=== PATIENT | male | born 1970 | race Caucasian/White ===

== ENCOUNTER 2016-11-13 13:28 | Observation (INO) | payer BC ==
[2016-11-13 14:07] LABS: Hematocrit 45 % (42-52); Hemoglobin 15.4 g/dl (14.0-18.0); Mean Corpuscular HGB Conc 34 g/dl (31-36); Mean Corpuscular Hemoglobin 36 pg (27-31); Mean Platelet Volume 7 um3 (7.4-10.4); Red Blood Count 4.27 10^6/ul (4.0-5.4); Red Cell Distribution Width 14 % (10.5-15); White Blood Count 5.3 10^3/ul (3.5-10.8)
[2016-11-13 14:08] LABS: Comments Flag Yes; Mean Corpuscular Volume 105 fL (80-94)
[2016-11-13] MEDS ORDERED: Magnesium Sulfate 2 GM IV* 2 GM/50 ML BAG IVPB ONE (14:21)
[2016-11-13] MEDS ORDERED: Thiamine IV* 100 MG, Folic Acid IV* 1 MG, Multiple Vitamin IV ADULT* 10 ML in NS 0.9% 1... IV ONE (14:22)
[2016-11-13 14:23] LABS: ALT 42 U/L (7-52); AST 85 U/L (13-39); Alkaline Phosphatase 67 U/L (34-104); Anion Gap 14 mmol/L (2-11); BUN/Creatinine Ratio 7.4 (8-20); Blood Urea Nitrogen 5 mg/dL (6-24); CO2 Carbon Dioxide 27 mmol/L (22-32); Calcium 8.4 mg/dL (8.6-10.3); Chloride 99 mmol/L (101-111); Creatine Kinase 147 U/L (10-223); EGFR African American 162.9 (>60); EGFR Non-African American 126.7 (>60); Globulin 2.8 g/dL (2-4); Glucose 110 mg/dL (70-100); Potassium 3.7 mmol/L (3.5-5.0); Sodium 140 mmol/L (133-145); Total Protein 6.8 g/dL (6.4-8.9)
[2016-11-13] MEDS ORDERED: LORazepam INJ* 2 MG/ML 1 ML VIAL IV PUSH ONE (14:23)
[2016-11-13] MEDS: NS 0.9% 1000 ML* 2,000 ML IV ONE ×2 (14:35→16:05)
[2016-11-13 14:49] LABS: Magnesium 1.3 mg/dL (1.9-2.7)
[2016-11-13 15:07] LABS: Acetaminophen < 15 mcg/mL; Alcohol 206 mg/dL (<10); Salicylate < 2.50 mg/dL (<30)
--- NOTE | 2016-11-13 16:19 | ED ---
I, Arron,An, scribed for Jorge Garcia MD on 11/13/16 at 1428 . Substance Abuse/Use - HPI Summary HPI Summary: This 46 y/o male presents to ED as 2208 for EtOH abuse. Pt reports having been drinking a couple days in a row, with last drink of beer at [id number] PM last night. Pt states that he has hx of EtOH abuse counseling 3 years ago. Pt reports constant, waxing and waning tremors that are noted since this morning. He denies any auditory/visual hallucination during his usual withdrawal. He is noted with blood pressure of 151/102 and pulse rate of 105 were noted at time of triage. PMHx includes HTN and chronic left knee pain. 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 Pt chews tobacco, but denies any use of recreational drug. FHx is positive for DM and EtOH abuse. Pt denies any depression but reports sleep disturbance and appetite loss while he drinks. - History Of Current Complaint Chief Complaint: EDSubstanceAbuse Stated Complaint: 2208 Time Seen by Provider: 11/13/16 13:49 Hx Obtained From: Patient Overdose Characteristics: Oral Timing Of Abuse: Binge Use Severity Initially: Moderate Severity Currently: Moderate Character: Depressed, Other - agitated Aggravating Factor(s): Nothing Alleviating Factor(s): Nothing Associated Signs And Symptoms: Tremulous, Agitated, Intentional Ingestion - Allergies/Home Medications Allergies/Adverse Reactions: Allergies Allergy/AdvReac Type Severity Reaction Status Date / Time No Known Allergies Allergy Verified 04/11/16 15:38 PMH/Surg Hx/FS Hx/Imm Hx Endocrine/Hematology History: Denies: Hx Anticoagulant Therapy, Hx Diabetes, Hx Thyroid Disease Cardiovascular History: Reports: Hx Angina, Hx Hypercholesterolemia, Hx Hypertension Denies: Hx Coronary Artery Disease, Hx Myocardial Infarction, Hx Pacemaker/ ICD, Hx Valvular Heart Disease Respiratory History: Denies: Hx Asthma, Hx Chronic Obstructive Pulmonary Disease (COPD) GI History: Denies: Hx Ulcer History: Denies: Hx Renal Disease Musculoskeletal History: Reports: Hx Arthritis - in bilateral knees Denies: Hx Rheumatoid Arthritis, Hx Osteoporosis, Other Musculoskeletal History Sensory History: Reports: Hx Contacts or Glasses Denies: Hx Hearing Aid Opthamlomology History: Reports: Hx Contacts or Glasses Neurological History: Denies: Hx Seizures Psychiatric History: Reports: Hx Anxiety, Hx Substance Abuse Denies: Hx Eating Disorder, Hx Panic Disorder, Hx of Violent Episodes Against Others - Surgical History Surgery Procedure, Year, and Place: 1987 Lt Knee surgery - LATERAL MENISCUS SURGERY - TORE DURING WRESTLING. Infectious Disease History: No Infectious Disease History: Denies: Hx Clostridium Difficile, Hx Hepatitis, Hx Human Immunodeficiency Virus (HIV), Hx of Known/Suspected MRSA, Hx Shingles, Hx Tuberculosis, Hx Known/ Suspected VRE, Hx Known/Suspected VRSA, History Other Infectious Disease, Traveled Outside the [place] in Last 30 Days - Family History Known Family History: Positive: Hypertension, Diabetes, Other - EtOH abuse - Social History Occupation: Employed Full-time - financial administration officer at [employer] Alcohol Use: Daily Alcohol Amount: 1LITER DALIY Hx Substance Use: No Substance Use Type: Reports: None Hx Tobacco Use: Yes - Chewing tobacco Smoking Status (MU): Former Smoker Type: Smokeless Tobacco Amount Used/How Often: QUIT 25 YEARS AGO Have You Smoked in the Last Year: No Review of Systems Negative: Fever Positive: Nausea Neurological: Other - tremor Positive: Anxious All Other Systems Reviewed And Are Negative: Yes Physical Exam - Summary Physical Exam Summary: The patient is well-nourished in no acute distress and in no acute pain. The skin is warm and dry and skin color reflects adequate perfusion. Good turgor. HEENT: The head is normocephalic and atraumatic. The pupils are equal and reactive. Bilat conjuctiva injected. The conjunctivae are clear and without drainage. Nares are patent and without drainage. Mouth reveals DRY mucous membranes and the throat is without erythema and exudate. The external ears are intact. The ear canals are patent and without drainage. The tympanic membranes are intact. Neck is supple with full range of motion and non-tender. There are no carotid bruits. There is no neck vein distension. Respiratory: Chest is non-tender. Lungs are clear to auscultation and breath sounds are symmetrical and equal. Cardiovascular: Hear is regular rate and rhythm. There is no murmur or rub auscultated. There is no peripheral edema and pulses are symmetrical and equal. Abdomen: The abdomen is obese, soft, and non-tender. Musculoskeletal: There is no back pain noted. Extremities are non-tender with full range of motion. There is good capillary refill. There is no peripheral edema or calf tenderness elicited. Neurological: Patient is alert and oriented to person, place and time. The patient has symmetrical motor strength in all four extremities. Cranial nerves are grossly intact. Deep tendon reflexes are symmetrical and equal in all four extremities .Pt appears tremulous. Psychiatric: The patient appears to be agitated and depressed. Triage Information Reviewed: Yes Vital Signs On Initial Exam: Initial Vitals Temp Pulse Resp BP Pulse Ox 97.6 F 105 16 151/102 100 11/13/16 13:31 11/13/16 13:31 11/13/16 13:31 11/13/16 13:31 11/13/16 13:31 Vital Signs Reviewed: Yes Diagnostics - Vital Signs Vital Signs Temp Pulse Resp BP Pulse Ox 11/13/16 13:51 94 97 11/13/16 13:49 144/101 11/13/16 13:31 97.6 F 105 16 151/102 100 - Laboratory Lab Results: Lab Results 11/13/16 Range/Units 13:50 WBC 5.3 (3.5-10.8) 10^3/ul RBC 4.27 (4.0-5.4) 10^6/ul Hgb 15.4 (14.0-18.0) g/dl Hct 45 (42-52) % MCV 105 H (80-94) fL MCH 36 H (27-31) pg MCHC 34 (31-36) g/dl RDW 14 (10.5-15) % Plt Count 156 (150-450) 10^3/ul MPV 7 L (7.4-10.4) um3 Neut % (Auto) 72.8 (38-83) % Lymph % (Auto) 18.4 L (25-47) % [place] % (Auto) 7.8 (1-9) % Eos % (Auto) 0.1 (0-6) % Baso % (Auto) 0.9 (0-2) % Absolute Neuts (auto) 3.9 (1.5-7.7) 10^3/ul Absolute Lymphs (auto) 1.0 (1.0-4.8) 10^3/ul Absolute Monos (auto) 0.4 (0-0.8) 10^3/ul Absolute Eos (auto) 0 (0-0.6) 10^3/ul Absolute Basos (auto) 0 (0-0.2) 10^3/ul Absolute Nucleated RBC 0 10^3/ul Nucleated RBC % 0.1 Result Diagrams: 11/13/16 13:50 11/13/16 13:50 Lab Statement: Any lab studies that have been ordered have been reviewed, and results considered in the medical decision making process. Course/Dx - Course Assessment/Plan: This 46 y/o male presents to ED as 2208 after pt is noted with tremor. Pt reports drinking "a couple of days straight" with the last drink reported last night around 2230 PM. Pt is noted with tachycardia, hypertension at the time of triage, and tremor at the time of initial evaluation. Blood work shows lactic acid of 4.2 and serum EtOH level of 206. Physical findings were discussed with Dr. Sandoval (hospitalist) and [employer] social worker. Dr. Sandoval accepts the admission of the pt. - Diagnoses Differential Diagnosis/HQI/PQRI: Positive: Alcohol Abuse, Alcohol Withdrawal, Depression Provider Diagnoses: Acute alcohol intoxication, Alcohol withdrawal - Physician Notifications Discussed Care Of Patient With: Dr. Sandoval (Hospitalist) at 1541 PM. Valencia ( Technical Writer And Editor) at 1555 PM Time Discussed With Above Provider: 15:41 Instructed by Provider To: Admit As Inpatient Discharge - Discharge Plan Condition: Stable Disposition: ADMITTED TO DEPORT MEDICAL Referrals: Harish Longo MD [Primary Care Provider] - The documentation as recorded by the Arron [email or web address] Soohyun accurately reflects the service I personally performed and the decisions made by me, Jorge Garcia MD.
[2016-11-13] MEDS ORDERED: Acetaminophen TAB* 325 MG PO PRN (16:28)
[2016-11-13] MEDS ORDERED: Temazepam CAP* 15 MG PO PRN (16:28)
[2016-11-13] MEDS ORDERED: Ondansetron INJ* 2 MG/ML VIAL IV PRN ×2 (16:28→16:41)
[2016-11-13] MEDS ORDERED: Ibuprofen TAB* 600 MG PO PRN (16:29)
[2016-11-13] MEDS ORDERED: Magnesium Sulf 4 GM/100 ML IV* 4,000 MG/100 ML BAG IVPB ONE ×2 (16:41→20:00)
[2016-11-13] MEDS ORDERED: LORazepam TAB(*) 1 MG PO SCH (17:00)
[2016-11-13] MEDS: LORazepam TAB(*) 1 MG PO SCH (18:20)
[2016-11-13] MEDS: Magnesium Oxide TAB* 400 MG PO SCH (18:20)
[2016-11-13] MEDS: busPIRone TAB* 10 MG PO SCH (21:52)
[2016-11-13] MEDS: Gabapentin CAP(*) 300 MG PO SCH (21:52)
[2016-11-13] MEDS: NS 0.9% 1000 ML* 1,000 ML IV SCH (21:57)
--- NOTE | 2016-11-13 22:12 | HP ---
HISTORY AND PHYSICAL: DATE OF ADMISSION: 11/13/16 PRIMARY CARE PROVIDER: Dr. Longo. CHIEF COMPLAINT: Alcohol withdrawal. HISTORY OF PRESENT ILLNESS: Ryley Mejia is a 46-year-old male with a history of alcoholism as well as alcohol withdrawal seizures, who was stopped by a police today while driving under the influence of alcohol. He was brought to the ED for evaluation while intoxicated due to starting to withdrawal. The patient himself stated that 2 days ago, he fell because "the wall moved up on him." Today, he denies any hallucinations. He complains of nausea, diarrhea , and tremors. He is going to be admitted with a diagnosis of alcohol withdrawal. PAST MEDICAL HISTORY: 1. Alcohol withdrawal seizure. 2. Hypertension. 3. Bilateral knee osteoarthritis. 4. Alcoholism. 5. History of left lateral meniscus repair in 1997. MEDICATIONS: The patient has not taken any medications for the past several weeks, but he usually takes: 1. Atenolol 25 mg daily. 2. Ibuprofen 600 mg on a p.r.n. basis. 3. Zoloft 75 mg daily. 4. Thiamine 100 mg daily. 5. BuSpar 10 mg b.i.d. 6. Amlodipine 5 mg daily. 7. Folic acid 1 mg daily. 8. Gabapentin 300 mg 3 times a day. ALLERGIES: No known drug allergies. FAMILY HISTORY: Reviewed and noncontributory. SOCIAL HISTORY: The patient stated that he quit smoking approximately 13 years ago. He chews tobacco daily. He drinks 2 small bottles of hot liquor a day. He lives by himself. He is currently employed and used to be a correctional counselor/case manager over 6 months ago. For 6 months, he was on sick leave due to knee osteoarthritis. His healthcare proxy is his brother, Gilbert Mejia. His phone number is [phone]. REVIEW OF SYSTEMS: Please see history of present illness. All the remaining systems were reviewed with the patient and were otherwise negative. PHYSICAL EXAMINATION GENERAL: The patient is a very pleasant 46-year-old male who is in no acute distress. The patient is alert and oriented x3. VITAL SIGNS: Blood pressure of 132/81, heart rate of 99 and regular, respiratory rate 22, oxygen saturation 98% on 2 L of oxygen nasal cannula. The patient was placed on oxygen since he was saturating below 90% when asleep. Temperature 97.6. HEENT: Head atraumatic, normocephalic. Eyes: Pupils equal, reactive to light and accommodation. Oropharynx clear. Mucosa moist. NECK: Supple. No JVD. No bruit bilaterally. RESPIRATORY: Clear to auscultation bilaterally. CARDIOVASCULAR: Regular rate and rhythm. No murmur. ABDOMEN: Soft, protuberant, nontender. Bowel sounds present in all 4 quadrants. EXTREMITIES: There is no edema. Pulses 2+ bilaterally. There is no clubbing or cyanosis. NEURO: The patient is rather tremulous. Oriented x3. Speech fluent and clear. Cranial nerves II through XII grossly intact. Motor strength is 5/5 bilaterally. SKIN: On evaluation of the skin, the patient has ecchymotic area on the right shoulder. No other lesions identified. PSYCHIATRIC: Oriented x3 with no evidence of anxiety or depression. Positive for withdrawal. DIAGNOSTIC STUDIES/LAB DATA: Show white blood cell count of 5.3, hemoglobin of 15.4, hematocrit of 45, and platelets of 156. MCV of 105. Sodium was 140, potassium 3.7, chloride of 99, carbon dioxide 27, BUN 5, creatinine 0.68. Liver function test showed AST of 85; otherwise, ALT and alkaline phosphatase unremarkable. Bilirubin of 1. Magnesium was low at 1.3. Lactic acid was elevated at 4.2. ASSESSMENT AND PLAN: A 46-year-old male, alcoholic, with history of hallucinations couple of days ago as well as history of alcohol withdrawal seizures in the past, who presents with withdrawal. Currently, his mentation is intact. He experiences tremors, nausea, and diarrhea. He is going to be placed on inpatient status. In regards to his alcohol withdrawal, he is going to be placed on Ativan withdrawal protocol as well as Ativan standing order for seizure prophylaxis. In regards to his hypomagnesemia, the patient is going to be placed on p.o. magnesium as well as IV magnesium. We will monitor magnesium levels in the morning. In regards to mild elevation of AST most likely due to alcoholism and very mild alcoholic hepatitis. I do not believe any followup at this point is needed. Please note that the patient's serum alcohol level at presentation was 206. Although he stated that the last time he drank was the night prior to today's presentation. Thiamine and folate supplements are also going to be ordered on a daily basis. In regards to the patient's history of hypertension, atenolol and Norvasc is going to be reinstituted. For his chronic pain and osteoarthritis, gabapentin is going to be continued as previously ordered. For his depression, he does not have suicide ideation. Buspirone and Zoloft is going to be restarted. For DVT prophylaxis, the patient is at low risk and ambulation is going to be encouraged. TIME SPENT: Approximately 62 minutes were spent on admission of this patient, more than half that time was spent [id number] with the patient during the interview and physical exam. CC: Dr. Longo* [id number]/[facility] #: [id number] JOSUE
[2016-11-14] MEDS: LORazepam TAB(*) 1 MG PO SCH ×2 (01:09→11:24)
[2016-11-14 01:51] LABS: Urine Bilirubin Negative (Negative); Urine Glucose Negative (Negative); Urine Nitrite Negative (Negative)
[2016-11-14 02:02] LABS: Benzodiazepine Urine Screen None Detected (None Detect)
[2016-11-14] MEDS: NS 0.9% 1000 ML* 1,000 ML IV SCH (05:59)
[2016-11-14] MEDS ORDERED: Thiamine TAB* 100 MG TAB PO SCH (09:00)
[2016-11-14] MEDS ORDERED: amLODIPine TAB* 5 MG PO SCH (09:00)
[2016-11-14] MEDS ORDERED: Sertraline* 50 MG TAB PO SCH (09:00)
[2016-11-14] MEDS ORDERED: Folic Acid TAB* 1 MG PO SCH (09:00)
[2016-11-14] MEDS ORDERED: Multivitamins/Minerals TAB PO SCH (09:00)
[2016-11-14] MEDS ORDERED: Atenolol TAB* 25 MG PO SCH (09:00)
[2016-11-14] MEDS ORDERED: Pneumococcal *Vac Polyvalent 0.5 ML VIAL IM ONE (09:00)
[2016-11-14] MEDS ORDERED: Influenza VAC *QUAD* 2016-17* 0.5 ML SYRINGE IM ONE (09:00)
[2016-11-14] MEDS: Magnesium Oxide TAB* 400 MG PO SCH (09:30)
[2016-11-14] MEDS ORDERED: chlordiazePOXIDE CAP* 25 MG PO PRN (09:30)
[2016-11-14] MEDS: busPIRone TAB* 10 MG PO SCH (09:31)
[2016-11-14] MEDS: Gabapentin CAP(*) 300 MG PO SCH ×2 (09:31→15:01)
--- NOTE | 2016-11-14 09:59 | PN ---
Subjective Date of Service: 11/14/16 Interval History: No new c/o. Slept fair. Appetite good. Pt states he is in process of going to inpt rehab. Objective Active Medications: Acetaminophen (Tylenol Tab*) 650 mg PO Q4H PRN PRN Reason: FEVER/PAIN Amlodipine Besylate (Norvasc Tab*) 5 mg PO DAILY [facility] Last Admin: 11/14/16 09:31 Dose: 5 mg Atenolol (Tenormin Tab*) 25 mg PO DAILY [facility] Last Admin: 11/14/16 09:31 Dose: 25 mg Buspirone HCl (Buspar Tab*) 10 mg PO BID [facility] Last Admin: 11/14/16 09:31 Dose: 10 mg Chlordiazepoxide (Librium Cap*) 25 mg PO TID [facility] Chlordiazepoxide (Librium Cap*) 25 mg PO Q3H PRN PRN Reason: AGITATION/ANXIETY Folic Acid (Folvite Tab*) 1 mg PO DAILY [facility] Last Admin: 11/14/16 09:31 Dose: 1 mg Gabapentin (Neurontin Cap(*)) 300 mg PO TID [facility] Last Admin: 11/14/16 09:31 Dose: 300 mg Ibuprofen (Motrin Tab*) 600 mg PO Q6H PRN PRN Reason: PAIN - MODERATE Magnesium Oxide (Magox 400 Tab*) 800 mg PO DAILY [facility] Last Admin: 11/14/16 09:30 Dose: 800 mg Multivitamins/Minerals (Theragran/Minerals Tab*) 1 tab PO DAILY [facility] Last Admin: 11/14/16 09:30 Dose: 1 tab Ondansetron HCl (Zofran Inj*) 4 mg IV Q6H PRN PRN Reason: NAUSEA/VOMITING Last Admin: 11/13/16 17:28 Dose: 4 mg Sertraline HCl (Zoloft*) 75 mg PO DAILY [facility] Last Admin: 11/14/16 09:30 Dose: 75 mg Temazepam (Restoril Cap*) 15 mg PO BEDTIME PRN PRN Reason: INSOMNIA Thiamine HCl (Vitamin B-1 Tab*) 100 mg PO DAILY [facility] Last Admin: 11/14/16 09:31 Dose: 100 mg Vital Signs 11/13/16 11/13/16 11/13/16 17:15 17:35 18:20 Temperature 98.3 F 98.3 F Pulse Rate 100 97 Respiratory 18 18 18 Rate Blood Pressure 146/78 146/78 (mmHg) O2 Sat by Pulse 100 100 Oximetry 11/13/16 11/13/16 11/13/16 19:31 20:00 20:16 Temperature 98.5 F Pulse Rate 83 Respiratory 18 16 16 Rate Blood Pressure 152/78 (mmHg) O2 Sat by Pulse 100 Oximetry 11/13/16 11/13/16 11/13/16 20:20 21:52 23:52 Temperature Pulse Rate Respiratory 16 16 16 Rate Blood Pressure (mmHg) O2 Sat by Pulse Oximetry 11/14/16 11/14/16 11/14/16 00:11 01:09 03:09 Temperature 98.3 F Pulse Rate 87 Respiratory 16 16 16 Rate Blood Pressure 144/74 (mmHg) O2 Sat by Pulse 97 Oximetry 11/14/16 11/14/16 11/14/16 05:15 08:17 09:31 Temperature 98.3 F 97.9 F Pulse Rate 73 85 Respiratory 16 16 18 Rate Blood Pressure 140/85 146/110 (mmHg) O2 Sat by Pulse 100 98 Oximetry Oxygen Devices in Use Now: None Appearance: Alert, partly up in bed. In good spirits. Looks comfortable. Eyes: No Scleral Icterus Ears/Nose/Mouth/Throat: Clear Oropharnyx, Mucous Membranes Moist Neck: NL Appearance and Movements; NL JVP, No Thyroid Enlargement, Masses Respiratory: Symmetrical Chest Expansion and Respiratory Effort, Clear to Auscultation, Clear to Percussion Cardiovascular: NL Sounds; No Murmurs; No JVD, RRR, No Edema, - Extremities: No Edema, No Clubbing, Cyanosis, - Skin: No Rash or Ulcers, No Nodules or Sclerosis, - Neurological: Alert and Oriented x 3, NL Sensation, - - mild sustention tremor. Result Diagrams: 11/13/16 13:50 11/13/16 13:50 Additional Lab and Data: Lab Results 11/13/16 Range/Units 13:50 WBC 5.3 (3.5-10.8) 10^3/ul RBC 4.27 (4.0-5.4) 10^6/ul Hgb 15.4 (14.0-18.0) g/dl Hct 45 (42-52) % MCV 105 H (80-94) fL MCH 36 H (27-31) pg MCHC 34 (31-36) g/dl RDW 14 (10.5-15) % Plt Count 156 (150-450) 10^3/ul MPV 7 L (7.4-10.4) um3 Neut % (Auto) 72.8 (38-83) % Lymph % (Auto) 18.4 L (25-47) % [place] % (Auto) 7.8 (1-9) % Eos % (Auto) 0.1 (0-6) % Baso % (Auto) 0.9 (0-2) % Absolute Neuts (auto) 3.9 (1.5-7.7) 10^3/ul Absolute Lymphs (auto) 1.0 (1.0-4.8) 10^3/ul Absolute Monos (auto) 0.4 (0-0.8) 10^3/ul Absolute Eos (auto) 0 (0-0.6) 10^3/ul Absolute Basos (auto) 0 (0-0.2) 10^3/ul Absolute Nucleated RBC 0 10^3/ul Nucleated RBC % 0.1 Assess/Plan/Problems-Billing Assessment: - Patient Problems (1) Alcohol withdrawal Current Visit: No Status: Acute Priority: High Code(s): F10.239 - ALCOHOL DEPENDENCE WITH WITHDRAWAL, UNSPECIFIED SNOMED Code(s): 113130183 Comment: Change to schedule and PRN chlordiazepoxide. I will coordinate with the . (2) Hypertension Current Visit: No Status: Chronic Priority: Medium Onset Date: 03/24/16 Code(s): I10 - ESSENTIAL (PRIMARY) HYPERTENSION SNOMED Code(s): 46275122 Comment: BP is well controlled. Continue atenolol and amlodipine.
[2016-11-14] MEDS: chlordiazePOXIDE CAP* 25 MG PO SCH ×2 (11:08→15:01)
[2016-11-14 12:32] VITALS: BP 132/88
--- NOTE | 2016-11-15 02:20 | DS ---
DISCHARGE SUMMARY: DATE OF ADMISSION: 11/13/16 DATE OF DISCHARGE: 11/14/16 HISTORY OF PRESENT ILLNESS: This 46-year-old man who was brought in by the police while he was driving under the influence of alcohol. The patient has a history of having alcohol withdrawal seizures in the past. He was in alcohol rehab once about 3 years ago. I note that his alcohol level in the emergency room was 206. The patient was given lorazepam the first hospital day. He was switched over to chlordiazepoxide the second hospital day. He did quite well. He had a mild sustention tremor at the time of discharge, but looked otherwise quite fit. His appetite is good. He was eating well and ambulating and in good spirit. He was seen by the social group worker and it was arranged that he would be admitted to a rehab facility on November 15. He was discharged with a prescription for chlordiazepoxide 25 mg 4 capsules to take one in the evening of November 14, , and and one in the morning of November 15. FINAL DIAGNOSES: 1. Alcohol withdrawal with history of alcohol seizures in the past. 2. Hypertension. DISCHARGE MEDICATIONS: 1. Chlordiazepoxide as above. 2. Buspirone 10 mg b.i.d. 3. Amlodipine 5 mg daily. 4. Atenolol 25 mg daily. 5. Ibuprofen 600 mg every 6 hours p.r.n. 6. Thiamine 100 mg daily. 7. Folic acid 1 mg daily. 8. Gabapentin 300 mg t.i.d. 9. Sertraline 75 mg daily. CC: Dr. Longo* [id number]/[facility] #: [id number] JOSUE
== END 2016-11-14 15:50 | disposition home or self-care (01) ==
LOC: ED 13:28 → OBSVTOIN 15:42 → MED 15:42 → INTOOBSV 15:42 → OBSVTOIN 16:00 → INTOOBSV 16:00 → MED 22:25
PROVIDERS: ADMIT Internal Medicine; ATTEND Internal Medicine
DX: F10.239 Alcohol dependence with withdrawal, unspecified (principal); I10 Essential (primary) hypertension; M17.0 Bilateral primary osteoarthritis of knee; Z87.891 Personal history of nicotine dependence; Z79.899 Other long term (current) drug therapy; Z23 Encounter for immunization
CPT/HCPCS: 36415; 80053; 80307; 80320; 80329; 81003; 82550; 83605; 83735; 85025; 90471; 90472; 90686; 90732; 96361; 96365; 96366; 96367; 96375; 96376; 99284; A9270-GY; G0008; G0009; G0378; G0480; G8978-GP-CI; G8979-GP-CI; G8980-GP-CI; J2060; J2405; J3411; J3475

== ENCOUNTER 2019-09-02 07:03 | Emergency (ER) | payer OTHER ==
--- NOTE | 2019-09-02 07:12 | UC ---
Lower Extremity/Ankle HPI - HPI Summary HPI Summary: 49 yo gentleman with L foot pain since Sunday (today is Sunday). Unk injury. Stands on feet all day. Hx gout. High arches. No other pain c/o reported. No fever / chills. No rash. No p/d/fw - History of Current Complaint Stated Complaint: FOOT INJURY Time Seen by Provider: 09/02/19 07:12 Hx Obtained From: Patient - Allergies/Home Medications Allergies/Adverse Reactions: Allergies Allergy/AdvReac Type Severity Reaction Status Date / Time No Known Allergies Allergy Verified 09/02/19 07:17 Home Medications: Home Medications Gabapentin CAP(*) [Neurontin 300 CAP(*)] 200 mg PO TID 09/02/19 [History] Ibuprofen TAB* [Motrin TAB* 600 MG] 800 mg PO Q6H PRN 09/02/19 [History Confirmed 09/02/19] PMH/Surg Hx/FS Hx/Imm Hx Previously Healthy: Yes - see hpi Other History Of: Negative For: Anticoagulant Therapy - Surgical History Surgical History: Yes Surgery Procedure, Year, and Place: 1987 Lt Knee surgery - LATERAL MENISCUS SURGERY - TORE DURING WRESTLING. - Family History Known Family History: Positive: Hypertension, Diabetes, Other - EtOH abuse Family History: R & n/C - Social History Alcohol Use: Daily Alcohol Amount: 1LITER DALIY Substance Use Type: None Substance Use Comment - Amount & Last Used: Last drank 11/12/16 Smoking Status (MU): Former Smoker Type: Smokeless Tobacco Amount Used/How Often: QUIT 25 YEARS AGO Have You Smoked in the Last Year: No - Immunization History Most Recent Influenza Vaccination: September, Most Recent Tetanus Shot: Remote Most Recent Pneumonia Vaccination: has not received Review of Systems All Other Systems Reviewed And Are Negative: Yes Constitutional: Positive: Negative Skin: Positive: Negative Eyes: Positive: Negative ENT: Positive: Negative Respiratory: Positive: Negative Cardiovascular: Positive: Negative Gastrointestinal: Positive: Negative Genitourinary: Positive: Negative Motor: Positive: Other - see hpi Neurovascular: Positive: Negative Musculoskeletal: Positive: Other: - see hpi Neurological: Positive: Negative Psychological: Positive: Negative Is Patient Immunocompromised?: No Physical Exam Triage Information Reviewed: Yes Appearance: Well-Appearing, Well-Nourished Vital Signs Reviewed: Yes Eye Exam: Normal - grossly nad ENT Exam: Normal - grossly nad Neck exam: Normal - no c/o reported Respiratory Exam: Normal Cardiovascular Exam: Normal - hr normal nondiaphoretic Abdominal Exam: Normal - nt Musculoskeletal Exam: Other - Tender medial arch. Also tender 1st MT and 2nd MTP. Some swelling. CR good. Wiggles toes but painful. Dp/Pt palpable. Neurological Exam: Normal - grossly nonfocal Psychological Exam: Normal - conversing easily and appropriately Skin Exam: Normal - no visible or reported rash Lower Extremity Course/Dx - Course Course Of Treatment: Consider gout vs other inflam condition. Reviewed xray report with pt. CAM boot for comfort. F/u PCP encouraged. Suspicious gout. Labs drawn. F/u PCP. Work note. - Differential Dx/Diagnosis Provider Diagnosis: Osteoarthritis, Gout Discharge ED - Sign-Out/Discharge Documenting (check all that apply): Patient Departure All imaging exams completed and their final reports reviewed: Yes - Discharge Plan Condition: Stable Disposition: HOME Prescriptions: Colchicine [Mitigare] 0.6 mg PO DAILY #6 capsule Indomethacin CAP* [Indocin CAP*] 50 mg PO TID PRN #30 cap PRN Reason: Pain - Moderate Patient Education Materials: Low Purine Diet (ED), Osteoarthritis (ED), Gout ( ED) Forms: *Work Release Referrals: Mateo Crenshaw MD [Primary Care Provider] - Additional Instructions: Follow up with your primary care physician, this week if possible for recheck. Frequent elevation. Please seek medical attention for worse or new problems. CAM boot for comfort during the day. - Billing Disposition and Condition Condition: STABLE Disposition: Home
[2019-09-02 07:17] VITALS: BP 156/89
[2019-09-02 15:04] LABS: C Reactive Protein 1.21 mg/L (<8.01); EGFR African American 123.6 (>60); EGFR Non-African American 102.1 (>60)
--- NOTE | 2019-09-03 11:27 | UC ---
- Progress Note Progress Note: PLEASE CALL PATIENT. LABS ALL NORMAL. SX MAY NOT BE DUE TO GOUT. FOLLOW-UP PCP ADVISED IF HIS SYMPTOMS ARE NOT IMPROVING WITH TREATMENT. Course/Dx - Diagnoses Provider Diagnoses: Osteoarthritis, Gout Discharge ED - Sign-Out/Discharge Documenting (check all that apply): Post-Discharge Follow Up All imaging exams completed and their final reports reviewed: Yes - Discharge Plan Condition: Stable Disposition: HOME Prescriptions: Colchicine [Mitigare] 0.6 mg PO DAILY #6 capsule Indomethacin CAP* [Indocin CAP*] 50 mg PO TID PRN #30 cap PRN Reason: Pain - Moderate Patient Education Materials: Low Purine Diet (ED), Osteoarthritis (ED), Gout ( ED) Forms: *Work Release Referrals: Mateo Crenshaw MD [Primary Care Provider] - Additional Instructions: Follow up with your primary care physician, this week if possible for recheck. Frequent elevation. Please seek medical attention for worse or new problems. CAM boot for comfort during the day. - Billing Disposition and Condition Condition: STABLE Disposition: Home
== END 2019-09-02 08:14 | disposition home or self-care (01) ==
LOC: UCEAST 07:03
DX: M19.072 Primary osteoarthritis, left ankle and foot (principal); M10.9 Gout, unspecified; Z87.891 Personal history of nicotine dependence
CPT/HCPCS: 36415; 82565; 84520; 84550; 85652; 86140; 99213; G0463

== ENCOUNTER 2022-01-02 07:56 | Inpatient (IN) ==
[2022-01-02] MEDS ORDERED: Lorazepam PYXIS KEY PRN ×5 (08:05→13:18)
[2022-01-02] MEDS ORDERED: LORazepam 2 mg VIAL 1 ml ONE (08:06)
[2022-01-02] MEDS ORDERED: Thiamine 100 MG/ML 2 ml VIAL (200 mg) IM ONE (08:07)
[2022-01-02] MEDS ORDERED: Lactated Ringers 1000 ml BAG 1,000 ML IV ONE ×3 (08:07→10:23)
[2022-01-02] MEDS ORDERED: Thiamine 100 MG/ML 2 ml VIAL 100 MG, Folic Acid IV 1 MG, Multiple Vitamin IV ADULT 10 M... IV ONE ×2 (08:08→13:13)
[2022-01-02] MEDS: LORazepam 2 mg VIAL 1 ml IV PUSH ONE ×2 (08:11→10:57)
[2022-01-02 09:15] LABS: ABS Lymphocytes 0.3 10^3/ul (1.0-4.8); ABS Monocytes 0.3 10^3/ul (0-0.8); ABS Neutrophils 6.6 10^3/ul (1.5-7.7); Hematocrit 38 % (42-52); Hemoglobin 13.2 g/dL (14.0-18.0); Lymphocyte % 4.8 %; Mean Corpuscular HGB Conc 35 g/dL (31-36); Mean Corpuscular Hemoglobin 36 pg (27-31); Mean Corpuscular Volume 104 fL (80-94); Mean Platelet Volume 8.1 fL (7.4-10.4); Platelet Count 113 10^3/uL (150-450); Red Blood Count 3.67 10^6 /uL (4.18-5.48); Red Cell Distribution Width 14 % (10-15); White Blood Count 7.3 10^3/uL (3.5-10.8)
[2022-01-02 09:19] LABS: INR 1.14 (0.86-1.15)
[2022-01-02] MEDS ORDERED: LORazepam 2 mg VIAL 1 ml IV PUSH ONE ×3 (09:21→12:24)
[2022-01-02 09:32] LABS: ALT 18 U/L (7-52); AST 21 U/L (13-39); Albumin/Globulin Ratio 1.9 (1-3); Alkaline Phosphatase 49 U/L (35-149); Anion Gap 13 mmol/L (2-11); Blood Urea Nitrogen 23 mg/dL (6-24); CO2 Carbon Dioxide 23 mmol/L (22-32); Calcium 9.1 mg/dL (8.6-10.3); Chloride 100 mmol/L (101-111); Globulin 2.1 g/dL (2-4); Glucose 70 mg/dL (70-100); Magnesium 1.9 mg/dL (1.9-2.7); Potassium 3.7 mmol/L (3.5-5.0); Sodium 136 mmol/L (135-145); Total Protein 6.1 g/dL (6.4-8.9); eGFR CKD-EPI 35.6 (>60)
[2022-01-02 09:34] LABS: Troponin I 0.01 ng/mL (<0.03)
[2022-01-02 09:43] LABS: Alcohol, S < 13 mg/dL (<13)
[2022-01-02] MEDS ORDERED: Haloperidol 5 mg/ml SDV IV/IM 5 MG/ML AMP IV SLOW PU ONE (10:28)
[2022-01-02] MEDS ORDERED: KCL 10 MEQ/50 ML IVPREMIX 10 MEQ/50 ML BAG IV ONE (12:53)
[2022-01-02] MEDS ORDERED: LORazepam 2 mg VIAL 1 ml IV PUSH PRN (13:18)
[2022-01-02] MEDS: Dexmedetomidine 1,000 MCG in NS 0.9% 250 ml 240 ML IV SCH (13:23)
[2022-01-02] MEDS ORDERED: Folic Acid IV 1 MG in NS 0.9% 50 ML 50 ML IV ONE (13:32)
[2022-01-02] MEDS: LORazepam 2 mg VIAL 1 ml IV PUSH SCH ×2 (13:39→16:36)
[2022-01-02] MEDS ORDERED: D5W 1000 ml BAG 1,000 ML IV SCH (14:00)
[2022-01-02] MEDS ORDERED: Thiamine 100 MG/ML 2 ml VIAL 500 MG in NS 0.9% 250 ml 250 ML IV SCH (14:00)
[2022-01-02] MEDS: Enoxaparin 40 MG/0.4 ML SYR SUBCUT SCH (16:24)
[2022-01-02] MEDS: Thiamine 100 MG/ML 2 ml VIAL 500 MG in NS 0.9% 250 ml 250 ML IV SCH (18:30)
[2022-01-02 18:33] LABS: Calcium 8.4 mg/dL (8.6-10.3); Potassium 3.6 mmol/L (3.5-5.0)
[2022-01-02 18:39] LABS: eGFR CKD-EPI 74.1 (>60)
[2022-01-02 22:04] LABS: Urine Appearance Cloudy; Urine Bilirubin Negative (Negative); Urine Blood Negative (Negative); Urine Color Yellow; Urine Glucose Negative (Negative); Urine Ketones Trace (Negative); Urine Nitrite Negative (Negative); Urine Protein Negative (Negative); Urine Urobilinogen Negative (Negative)
[2022-01-03] MEDS ORDERED: NS 0.9% 250 ml 250 ML ONE (03:00)
[2022-01-03] MEDS: Thiamine 100 MG/ML 2 ml VIAL 500 MG in NS 0.9% 250 ml 250 ML IV SCH ×3 (03:02→18:25)
[2022-01-03 04:58] LABS: Hematocrit 36 % (42-52); Hemoglobin 12.2 g/dL (14.0-18.0); Mean Corpuscular HGB Conc 34 g/dL (31-36); Mean Corpuscular Hemoglobin 36 pg (27-31); Mean Corpuscular Volume 105 fL (80-94); Mean Platelet Volume 8.4 fL (7.4-10.4); Platelet Count 100 10^3/uL (150-450); Red Blood Count 3.39 10^6 /uL (4.18-5.48); Red Cell Distribution Width 14 % (10-15); White Blood Count 4.4 10^3/uL (3.5-10.8)
[2022-01-03 05:12] LABS: Albumin 3.6 g/dL (3.2-5.2); Calcium 8.1 mg/dL (8.6-10.3); Potassium 3.8 mmol/L (3.5-5.0); Total Bilirubin 1.1 mg/dL (0.2-1.0)
[2022-01-03 05:18] LABS: Albumin/Globulin Ratio 1.9 (1-3); Globulin 1.9 g/dL (2-4); Total Protein 5.5 g/dL (6.4-8.9); eGFR CKD-EPI 108.1 (>60)
[2022-01-03] MEDS ORDERED: Lorazepam PYXIS KEY PRN ×3 (05:21→23:59)
[2022-01-03] MEDS: LORazepam 2 mg VIAL 1 ml IV PUSH SCH ×3 (05:25→15:33)
[2022-01-03] MEDS: Pantoprazole VIAL 40 MG VIAL IV SCH (07:45)
[2022-01-03] MEDS ORDERED: Thiamine 100 MG/ML 2 ml VIAL 100 MG, Folic Acid IV 1 MG, Multiple Vitamin IV ADULT 10 M... IV SCH (09:00)
[2022-01-03] MEDS ORDERED: Multivitamins/Minerals TAB PO SCH (09:00)
[2022-01-03] MEDS: Enoxaparin 40 MG/0.4 ML SYR SUBCUT SCH (13:42)
[2022-01-03] MEDS ORDERED: Lorazepam PYXIS KEY ONE ×2 (16:38→23:58)
[2022-01-03] MEDS ORDERED: LORazepam 2 mg VIAL 1 ml ONE ×2 (16:39→23:58)
[2022-01-03] MEDS ORDERED: Haloperidol 5 mg/ml SDV IV/IM 5 MG/ML AMP ONE (16:48)
[2022-01-03] MEDS ORDERED: Haloperidol 5 mg/ml SDV IV/IM 5 MG/ML AMP IV SLOW PU ONE ×2 (16:48→17:03)
[2022-01-03] MEDS: LORazepam 2 mg VIAL 1 ml IV PUSH PRN ×3 (16:51→22:53)
[2022-01-03] MEDS ORDERED: LORazepam 2 mg VIAL 1 ml IV PUSH ONE ×2 (17:01→23:59)
[2022-01-03] MEDS ORDERED: diPHENhydraMINE IV 50 MG/ML 1 ml VIAL (BENADRYL) IV ONE (17:02)
[2022-01-03] MEDS ORDERED: diPHENhydraMINE IV 50 MG/ML 1 ml VIAL (BENADRYL) ONE (17:02)
[2022-01-04] MEDS ORDERED: NS 0.9% 250 ml 250 ML ONE (01:00)
[2022-01-04] MEDS: LORazepam 2 mg VIAL 1 ml IV PUSH PRN ×2 (01:04→22:18)
[2022-01-04] MEDS ORDERED: LORazepam 2 mg VIAL 1 ml IV PUSH ONE ×4 (01:54→23:42)
[2022-01-04] MEDS ORDERED: Lorazepam PYXIS KEY PRN ×6 (01:54→23:42)
[2022-01-04] MEDS ORDERED: LORazepam VIAL (for drip) 100 MG in D5W 50 ml BAG 50 ML IV SCH (02:00)
[2022-01-04] MEDS ORDERED: LORazepam VIAL (for drip) 100 MG in D5W 100 ml BAG 50 ML IV SCH (02:00)
[2022-01-04] MEDS ORDERED: LORazepam 2 mg VIAL 1 ml ONE ×3 (02:05→23:43)
[2022-01-04] MEDS: Thiamine 100 MG/ML 2 ml VIAL 500 MG in NS 0.9% 250 ml 250 ML IV SCH ×2 (02:18→12:03)
[2022-01-04 03:51] LABS: ABS Eosinophils 0.1 10^3/ul (0-0.6); ABS Lymphocytes 0.7 10^3/ul (1.0-4.8); ABS Monocytes 0.3 10^3/ul (0-0.8); ABS Neutrophils 3.2 10^3/ul (1.5-7.7); Eosinophil % 1.4 %; Hematocrit 38 % (42-52); Lymphocyte % 15.7 %; Mean Corpuscular HGB Conc 35 g/dL (31-36); Mean Corpuscular Hemoglobin 36 pg (27-31); Mean Corpuscular Volume 103 fL (80-94); Mean Platelet Volume 7.7 fL (7.4-10.4); Nucleated Red Blood Cells % 0.1; Platelet Count 100 10^3/uL (150-450); Red Blood Count 3.65 10^6 /uL (4.18-5.48); Red Cell Distribution Width 14 % (10-15); White Blood Count 4.3 10^3/uL (3.5-10.8)
[2022-01-04 04:25] LABS: Calcium 8.1 mg/dL (8.6-10.3); Potassium 3.5 mmol/L (3.5-5.0); eGFR CKD-EPI 113.9 (>60)
[2022-01-04] MEDS: LORazepam 2 mg VIAL 1 ml IV PUSH SCH (07:10)
[2022-01-04] MEDS: Multivitamins/Minerals TAB PO SCH (07:33)
[2022-01-04] MEDS ORDERED: KCL 20 MEQ/100 ML IVPREMIX 20 MEQ/100 ML BAG ONE (07:34)
[2022-01-04] MEDS: Pantoprazole VIAL 40 MG VIAL IV SCH (07:38)
[2022-01-04] MEDS: KCL 20 MEQ/100 ML IVPREMIX 20 MEQ/100 ML BAG IV SCH ×2 (07:38→13:06)
[2022-01-04] MEDS ORDERED: diPHENhydraMINE IV 50 MG/ML 1 ml VIAL (BENADRYL) IV ONE ×2 (07:52→14:17)
[2022-01-04] MEDS ORDERED: Haloperidol 5 mg/ml SDV IV/IM 5 MG/ML AMP ONE (07:52)
[2022-01-04] MEDS ORDERED: Haloperidol 5 mg/ml SDV IV/IM 5 MG/ML AMP IV SLOW PU ONE ×2 (07:52→14:17)
[2022-01-04] MEDS ORDERED: diPHENhydraMINE IV 50 MG/ML 1 ml VIAL (BENADRYL) ONE ×2 (07:53→14:18)
[2022-01-04] MEDS ORDERED: PHENobarbital IV 65 MG/ML 1 ml VIAL ONE ×2 (08:56→15:38)
[2022-01-04] MEDS ORDERED: PHENobarbital IV 65 MG/ML 1 ml VIAL IV ONE ×4 (09:00→15:34)
[2022-01-04] MEDS ORDERED: KCL 20 MEQ/100 ML IVPREMIX 20 MEQ/100 ML BAG IV SCH (09:00)
[2022-01-04] MEDS ORDERED: Lorazepam PYXIS KEY ONE ×3 (09:40→23:43)
[2022-01-04] MEDS ORDERED: Haloperidol 5 mg/ml SDV IV/IM 5 MG/ML AMP IM ONE (10:00)
[2022-01-04] MEDS: Enoxaparin 40 MG/0.4 ML SYR SUBCUT SCH (13:12)
[2022-01-04] MEDS: PHENobarbital IV 65 MG/ML 1 ml VIAL IV SCH ×2 (14:08→20:44)
[2022-01-04] MEDS: Haloperidol 5 mg/ml SDV IV/IM 5 MG/ML AMP IM PRN ×2 (14:12→21:01)
[2022-01-04] MEDS ORDERED: LORazepam 2 mg VIAL 1 ml IV PUSH PRN (15:34)
[2022-01-04] MEDS ORDERED: Thiamine 100 MG/ML 2 ml VIAL 500 MG in NS 0.9% 250 ml 250 ML IV SCH (16:30)
[2022-01-04] MEDS: Thiamine 100 MG/ML 2 ml VIAL 250 MG in NS 0.9% 100 ml BAG 100 ML IV SCH (17:23)
[2022-01-04] MEDS: Dexmedetomidine 1,000 MCG in NS 0.9% 250 ml 240 ML IV SCH (23:36)
[2022-01-05] MEDS: Haloperidol 5 mg/ml SDV IV/IM 5 MG/ML AMP IM PRN (02:54)
[2022-01-05 03:32] LABS: ABS Eosinophils 0.1 10^3/ul (0-0.6); ABS Lymphocytes 0.7 10^3/ul (1.0-4.8); ABS Monocytes 0.6 10^3/ul (0-0.8); Eosinophil % 1.3 %; Hematocrit 39 % (42-52); Hemoglobin 13.6 g/dL (14.0-18.0); Lymphocyte % 15.5 %; Mean Corpuscular HGB Conc 35 g/dL (31-36); Mean Corpuscular Hemoglobin 36 pg (27-31); Mean Corpuscular Volume 103 fL (80-94); Mean Platelet Volume 7.9 fL (7.4-10.4); Platelet Count 120 10^3/uL (150-450); Red Blood Count 3.79 10^6 /uL (4.18-5.48); Red Cell Distribution Width 14 % (10-15); White Blood Count 4.3 10^3/uL (3.5-10.8)
[2022-01-05 03:55] LABS: Calcium 8.4 mg/dL (8.6-10.3); Potassium 3.7 mmol/L (3.5-5.0)
[2022-01-05 04:01] LABS: eGFR CKD-EPI 115.5 (>60)
[2022-01-05] MEDS: LORazepam 2 mg VIAL 1 ml IV PUSH PRN (04:24)
[2022-01-05] MEDS ORDERED: Lorazepam PYXIS KEY ONE (08:33)
[2022-01-05] MEDS ORDERED: LORazepam 2 mg VIAL 1 ml ONE ×2 (08:33→13:42)
[2022-01-05] MEDS: PHENobarbital IV 65 MG/ML 1 ml VIAL IV SCH ×3 (08:37→20:30)
[2022-01-05] MEDS: Pantoprazole VIAL 40 MG VIAL IV SCH (08:40)
[2022-01-05] MEDS ORDERED: cloNIDine 0.2 MG PATCH 0.2 MG/24 HR 7 DAY PATCH TRANSDERM SCH (09:00)
[2022-01-05] MEDS ORDERED: Lorazepam PYXIS KEY PRN ×2 (09:21→13:40)
[2022-01-05] MEDS ORDERED: LORazepam 2 mg VIAL 1 ml IV PUSH ONE ×2 (09:21→13:40)
[2022-01-05] MEDS: Multivitamins/Minerals TAB PO SCH (09:27)
[2022-01-05] MEDS ORDERED: PHENobarbital IV 65 MG/ML 1 ml VIAL IV PRN ×2 (10:43→14:00)
[2022-01-05] MEDS ORDERED: PHENobarbital IV 65 MG/ML 1 ml VIAL IV ONE (11:00)
[2022-01-05] MEDS ORDERED: Multivitamins ADULT w/MIN LIQ 15 ML UDC ONE (11:18)
[2022-01-05] MEDS ORDERED: Acetaminophen IV 1 GM/100ML 100 ML IV PRN (11:20)
[2022-01-05] MEDS: Multivitamins ADULT w/MIN LIQ 15 ML UDC PO SCH (11:33)
[2022-01-05] MEDS: D5LR 1000 ml BAG 1,000 ML IV SCH (11:38)
[2022-01-05] MEDS: Enoxaparin 40 MG/0.4 ML SYR SUBCUT SCH (13:43)
[2022-01-05] MEDS: Dexmedetomidine 1,000 MCG in NS 0.9% 250 ml 240 ML IV SCH (14:34)
[2022-01-05] MEDS ORDERED: diPHENhydraMINE IV 50 MG/ML 1 ml VIAL (BENADRYL) IV PRN (15:06)
[2022-01-05] MEDS: Thiamine 100 MG/ML 2 ml VIAL 250 MG in NS 0.9% 100 ml BAG 100 ML IV SCH (17:02)
[2022-01-06] MEDS: D5LR 1000 ml BAG 1,000 ML IV SCH (00:53)
[2022-01-06] MEDS ORDERED: hydrALAZINE 20 mg/ml 1 ML Vial IV IV SLOW PU ONE (04:05)
[2022-01-06] MEDS ORDERED: hydrALAZINE 20 mg/ml 1 ML Vial IV ONE (04:10)
[2022-01-06 06:47] LABS: ABS Eosinophils 0.1 10^3/ul (0-0.6); ABS Lymphocytes 0.5 10^3/ul (1.0-4.8); ABS Monocytes 0.5 10^3/ul (0-0.8); ABS Neutrophils 2.2 10^3/ul (1.5-7.7); Eosinophil % 1.7 %; Hematocrit 38 % (42-52); Hemoglobin 13.1 g/dL (14.0-18.0); Lymphocyte % 16.4 %; Mean Corpuscular HGB Conc 35 g/dL (31-36); Mean Corpuscular Hemoglobin 36 pg (27-31); Mean Corpuscular Volume 103 fL (80-94); Mean Platelet Volume 7.8 fL (7.4-10.4); Nucleated Red Blood Cells % 0.1; Platelet Count 136 10^3/uL (150-450); Red Blood Count 3.64 10^6 /uL (4.18-5.48); Red Cell Distribution Width 14 % (10-15); White Blood Count 3.4 10^3/uL (3.5-10.8)
[2022-01-06] MEDS: Dexmedetomidine 1,000 MCG in NS 0.9% 250 ml 240 ML IV SCH (07:20)
[2022-01-06 07:33] LABS: CO2 Carbon Dioxide 28 mmol/L (22-32); Calcium 8.2 mg/dL (8.6-10.3); Chloride 101 mmol/L (101-111); Magnesium 1.2 mg/dL (1.9-2.7); Sodium 137 mmol/L (135-145)
[2022-01-06 07:39] LABS: Blood Urea Nitrogen 5 mg/dL (6-24); C Reactive Protein 196.96 mg/L (<8.01); Glucose 107 mg/dL (70-100); eGFR CKD-EPI 134.8 (>60)
[2022-01-06 07:44] LABS: Anion Gap 8 mmol/L (2-11)
[2022-01-06] MEDS ORDERED: Magnesium Sulf 4 GM/100 ML IV 4,000 MG/100 ML BAG IVPB ONE (07:47)
[2022-01-06] MEDS: Pantoprazole VIAL 40 MG VIAL IV SCH (08:06)
[2022-01-06] MEDS: Multivitamins ADULT w/MIN LIQ 15 ML UDC PO SCH (08:06)
[2022-01-06] MEDS: PHENobarbital IV 65 MG/ML 1 ml VIAL IV SCH ×4 (08:06→21:37)
[2022-01-06] MEDS ORDERED: Furosemide 40 mg/4 ml IV VIAL ONE (08:54)
[2022-01-06] MEDS ORDERED: Furosemide 40 mg/4 ml IV VIAL IV SCH (09:00)
[2022-01-06] MEDS ORDERED: Multivitamins ADULT w/MIN LIQ 15 ML UDC PO SCH (09:00)
[2022-01-06] MEDS ORDERED: Lorazepam PYXIS KEY PRN ×3 (11:08→15:13)
[2022-01-06] MEDS ORDERED: LORazepam 2 mg VIAL 1 ml IV PUSH ONE (11:09)
[2022-01-06] MEDS ORDERED: LORazepam 2 mg VIAL 1 ml IV PUSH PRN (11:23)
[2022-01-06] MEDS ORDERED: Metoprolol Tartrate 5 mg VIAL 5 ml VIAL (1 mg/ml) IV ONE (12:26)
[2022-01-06 13:36] LABS: ABS Lymphocytes 0.8 10^3/ul (1.0-4.8); ABS Monocytes 0.6 10^3/ul (0-0.8); ABS Neutrophils 2.5 10^3/ul (1.5-7.7); Eosinophil % 1.2 %; Hematocrit 42 % (42-52); Hemoglobin 14.5 g/dL (14.0-18.0); Lymphocyte % 19.5 %; Mean Corpuscular HGB Conc 35 g/dL (31-36); Mean Corpuscular Hemoglobin 36 pg (27-31); Mean Corpuscular Volume 103 fL (80-94); Platelet Count 166 10^3/uL (150-450); Red Blood Count 4.04 10^6 /uL (4.18-5.48); Red Cell Distribution Width 14 % (10-15)
[2022-01-06 14:01] LABS: Calcium 8.5 mg/dL (8.6-10.3); Phosphorus 2.2 mg/dL (2.5-5.0); Potassium 2.8 mmol/L (3.5-5.0); eGFR CKD-EPI 125.8 (>60)
[2022-01-06] MEDS: Enoxaparin 40 MG/0.4 ML SYR SUBCUT SCH (14:03)
[2022-01-06] MEDS ORDERED: Potassium Phosphate IV 10 MMOLE in NS 0.9% 250 ml 250 ML IVPB ONE ×2 (14:14→15:00)
[2022-01-06] MEDS ORDERED: Potassium Chlor 20 meq TAB.ER PO ONE (14:14)
[2022-01-06] MEDS ORDERED: Iohexol 300 (CONTRAST) 10 ML SDV IV ONE (18:03)
[2022-01-06] MEDS ORDERED: Piperacillin/Tazobac ADVAN 3.375 GM in NS 0.9% 100 ml BAG 100 ML IV ONE (18:45)
[2022-01-06] MEDS ORDERED: Zosyn per Pharmacy NOTE FOLLOW UP SCH (19:00)
[2022-01-06] MEDS: Linezolid 600 MG IVPREMIX(*) 600 MG/300 ML BAG IVPB SCH (20:45)
[2022-01-07] MEDS: ZOSYN 3.375 GM Q8H per EXTENDED INFUSION IV SCH ×4 (00:35→23:58)
[2022-01-07] MEDS: KCL 20 MEQ/100 ML IVPREMIX 20 MEQ/100 ML BAG IV SCH ×5 (01:03→16:59)
[2022-01-07] MEDS: LORazepam 2 mg VIAL 1 ml IV PUSH PRN ×2 (04:28→07:30)
[2022-01-07] MEDS ORDERED: Haloperidol 5 mg/ml SDV IV/IM 5 MG/ML AMP IV SLOW PU ONE (04:45)
[2022-01-07] MEDS ORDERED: Haloperidol 5 mg/ml SDV IV/IM 5 MG/ML AMP ONE (04:49)
[2022-01-07] MEDS ORDERED: Lorazepam PYXIS KEY PRN ×3 (07:26→15:33)
[2022-01-07] MEDS ORDERED: LORazepam 2 mg VIAL 1 ml IV PUSH ONE ×3 (07:26→15:33)
[2022-01-07] MEDS ORDERED: LORazepam 2 mg VIAL 1 ml ONE ×3 (07:27→13:42)
[2022-01-07] MEDS: Multivitamins/Minerals TAB PO SCH (09:26)
[2022-01-07] MEDS: PHENobarbital IV 65 MG/ML 1 ml VIAL IV SCH ×2 (09:34→21:10)
[2022-01-07] MEDS: Linezolid 600 MG IVPREMIX(*) 600 MG/300 ML BAG IVPB SCH ×2 (09:37→21:00)
[2022-01-07 10:08] LABS: ABS Lymphocytes 0.6 10^3/ul (1.0-4.8); ABS Monocytes 0.5 10^3/ul (0-0.8); ABS Neutrophils 2.5 10^3/ul (1.5-7.7); Eosinophil % 1.3 %; Hematocrit 39 % (42-52); Hemoglobin 13.2 g/dL (14.0-18.0); Lymphocyte % 17.3 %; Mean Corpuscular HGB Conc 34 g/dL (31-36); Mean Corpuscular Hemoglobin 35 pg (27-31); Mean Corpuscular Volume 103 fL (80-94); Mean Platelet Volume 7.8 fL (7.4-10.4); Nucleated Red Blood Cells % 0.1; Platelet Count 177 10^3/uL (150-450); Red Blood Count 3.78 10^6 /uL (4.18-5.48); Red Cell Distribution Width 14 % (10-15); White Blood Count 3.7 10^3/uL (3.5-10.8)
[2022-01-07 10:40] LABS: Calcium 8.5 mg/dL (8.6-10.3); Magnesium 1.6 mg/dL (1.9-2.7); Phosphorus 2.6 mg/dL (2.5-5.0); Potassium 3.4 mmol/L (3.5-5.0); eGFR CKD-EPI 120.2 (>60)
[2022-01-07] MEDS ORDERED: Lorazepam PYXIS KEY ONE ×2 (11:11→13:42)
[2022-01-07 11:17] LABS: C Reactive Protein 145.62 mg/L (<8.01)
[2022-01-07] MEDS ORDERED: Magnesium Sulfate IV 3 GM in NS 0.9% 100 ml BAG 100 ML IVPB ONE (11:22)
[2022-01-07] MEDS ORDERED: Magnesium Sulfate 2 GM IV (Premix) IVPB ONE (12:00)
[2022-01-07] MEDS ORDERED: Magnesium Sulfate 1 GM IV 1 GM/100 ML BAG IV ONE (13:00)
[2022-01-07] MEDS: Enoxaparin 40 MG/0.4 ML SYR SUBCUT SCH (14:23)
[2022-01-07] MEDS: Dexmedetomidine 1,000 MCG in NS 0.9% 250 ml 240 ML IV SCH (14:29)
[2022-01-07] MEDS ORDERED: Dexmedetomidine 1,000 MCG in NS 0.9% 250 ml 240 ML IV SCH (15:00)
[2022-01-08 06:09] LABS: ABS Eosinophils 0.1 10^3/ul (0-0.6); ABS Monocytes 0.5 10^3/ul (0-0.8); ABS Neutrophils 2.1 10^3/ul (1.5-7.7); Eosinophil % 2.8 %; Hematocrit 40 % (42-52); Hemoglobin 13.6 g/dL (14.0-18.0); Lymphocyte % 27.8 %; Mean Corpuscular HGB Conc 34 g/dL (31-36); Mean Corpuscular Hemoglobin 35 pg (27-31); Mean Corpuscular Volume 103 fL (80-94); Mean Platelet Volume 7.9 fL (7.4-10.4); Nucleated Red Blood Cells % 0.1; Platelet Count 166 10^3/uL (150-450); Red Blood Count 3.89 10^6 /uL (4.18-5.48); Red Cell Distribution Width 14 % (10-15); White Blood Count 3.7 10^3/uL (3.5-10.8)
[2022-01-08 07:10] LABS: Albumin 3.3 g/dL (3.2-5.2); Calcium 8.3 mg/dL (8.6-10.3); Potassium 3.9 mmol/L (3.5-5.0); Total Bilirubin 0.7 mg/dL (0.2-1.0)
[2022-01-08 07:16] LABS: Albumin/Globulin Ratio 1.6 (1-3); Globulin 2.1 g/dL (2-4); Phosphorus 3.5 mg/dL (2.5-5.0); Total Protein 5.4 g/dL (6.4-8.9); eGFR CKD-EPI 122.2 (>60)
[2022-01-08] MEDS: ZOSYN 3.375 GM Q8H per EXTENDED INFUSION IV SCH ×3 (07:41→20:45)
[2022-01-08] MEDS: Linezolid 600 MG IVPREMIX(*) 600 MG/300 ML BAG IVPB SCH ×2 (09:30→19:26)
[2022-01-08] MEDS: PHENobarbital IV 65 MG/ML 1 ml VIAL IV SCH ×4 (09:30→20:45)
[2022-01-08] MEDS: Multivitamins/Minerals TAB PO SCH (10:05)
[2022-01-08] MEDS: Dexmedetomidine 1,000 MCG in NS 0.9% 250 ml 240 ML IV SCH (10:34)
[2022-01-08] MEDS ORDERED: Furosemide 40 mg/4 ml IV VIAL IV ONE (10:36)
[2022-01-08] MEDS ORDERED: Ondansetron 4 mg VIAL 2 MG/ML 2 ml VIAL IV PRN (13:51)
[2022-01-08] MEDS ORDERED: Ondansetron 4 mg VIAL 2 MG/ML 2 ml VIAL ONE (13:53)
[2022-01-08] MEDS: Enoxaparin 40 MG/0.4 ML SYR SUBCUT SCH (13:57)
[2022-01-08] MEDS ORDERED: Lactated Ringers 1000 ml BAG 1,000 ML IV ONE (14:45)
[2022-01-08] MEDS: Nicotine GUM 4MG FRUIT FLAVOR PO PRN (22:23)
[2022-01-09] MEDS: Nicotine GUM 4MG FRUIT FLAVOR PO PRN (00:22)
[2022-01-09] MEDS: ZOSYN 3.375 GM Q8H per EXTENDED INFUSION IV SCH ×4 (02:00→20:18)
[2022-01-09] MEDS: PHENobarbital IV 65 MG/ML 1 ml VIAL IV SCH ×2 (08:08→20:24)
[2022-01-09] MEDS: Multivitamins/Minerals TAB PO SCH (08:11)
[2022-01-09] MEDS: Linezolid 600 MG IVPREMIX(*) 600 MG/300 ML BAG IVPB SCH ×2 (08:26→20:57)
[2022-01-09] MEDS ORDERED: Lactated Ringers 1000 ml BAG 1,000 ML IV ONE (09:14)
[2022-01-09] MEDS ORDERED: Lidocaine 1% MPF 5 ML VIAL INJ ONE (09:32)
[2022-01-09 10:55] LABS: Blood Urea Nitrogen 6 mg/dL (6-24); CO2 Carbon Dioxide 26 mmol/L (22-32); Calcium 8.9 mg/dL (8.6-10.3); Chloride 101 mmol/L (101-111); Glucose 81 mg/dL (70-100); Magnesium 1.6 mg/dL (1.9-2.7); Sodium 138 mmol/L (135-145); eGFR CKD-EPI 108.5 (>60)
[2022-01-09 11:07] LABS: Anion Gap 11 mmol/L (2-11)
[2022-01-09] MEDS ORDERED: Magnesium Sulf 4 GM/100 ML IV 4,000 MG/100 ML BAG IVPB ONE (13:48)
[2022-01-09] MEDS: Enoxaparin 40 MG/0.4 ML SYR SUBCUT SCH (14:08)
[2022-01-10] MEDS: ZOSYN 3.375 GM Q8H per EXTENDED INFUSION IV SCH ×3 (01:58→15:55)
[2022-01-10 05:36] LABS: ABS Eosinophils 0.1 10^3/ul (0-0.6); ABS Lymphocytes 0.9 10^3/ul (1.0-4.8); ABS Monocytes 0.5 10^3/ul (0-0.8); ABS Neutrophils 3.5 10^3/ul (1.5-7.7); Eosinophil % 1.7 %; Hematocrit 38 % (42-52); Lymphocyte % 17.9 %; Mean Corpuscular HGB Conc 34 g/dL (31-36); Mean Corpuscular Hemoglobin 35 pg (27-31); Mean Corpuscular Volume 103 fL (80-94); Mean Platelet Volume 8.1 fL (7.4-10.4); Platelet Count 217 10^3/uL (150-450); Red Cell Distribution Width 14 % (10-15); White Blood Count 5.1 10^3/uL (3.5-10.8)
[2022-01-10 06:03] LABS: Calcium 8.5 mg/dL (8.6-10.3); Potassium 3.5 mmol/L (3.5-5.0); eGFR CKD-EPI 108.9 (>60)
[2022-01-10] MEDS: PHENobarbital IV 65 MG/ML 1 ml VIAL IV SCH (10:12)
[2022-01-10] MEDS: Multivitamins/Minerals TAB PO SCH (10:25)
[2022-01-10] MEDS: Linezolid 600 MG IVPREMIX(*) 600 MG/300 ML BAG IVPB SCH ×2 (11:01→20:17)
[2022-01-10] MEDS: Nicotine GUM 4MG FRUIT FLAVOR PO PRN ×2 (11:23→20:23)
[2022-01-10] MEDS: Enoxaparin 40 MG/0.4 ML SYR SUBCUT SCH (13:57)
[2022-01-10] MEDS: PHENobarbital LIQ 30 MG/7.5 ML UDC PO SCH (20:23)
[2022-01-10] MEDS ORDERED: NS 0.9% IVPB SCH (21:00)
[2022-01-10] MEDS ORDERED: PHENOBARBITAL IVPB SCH (21:00)
[2022-01-10] MEDS ORDERED: PHENobarbital IV 65 MG/ML 1 ml VIAL IV SCH (21:00)
[2022-01-11 06:18] VITALS: BP 133/84
[2022-01-11] MEDS: PHENobarbital LIQ 30 MG/7.5 ML UDC PO SCH (07:53)
[2022-01-11] MEDS: Multivitamins/Minerals TAB PO SCH (07:53)
[2022-01-11] MEDS: Linezolid 600 MG IVPREMIX(*) 600 MG/300 ML BAG IVPB SCH (08:01)
[2022-01-11] MEDS: Nicotine GUM 4MG FRUIT FLAVOR PO PRN (09:33)
== END 2022-01-11 11:25 | disposition home or self-care (01) | DRG 775 ==
LOC: ED 07:56 → ICU 08:01 → EDHOLD 13:36 → ICU 15:30 → MEDTELE 01-09 18:14
PROVIDERS: ADMIT Internal Medicine; ATTEND Internal Medicine